=== PATIENT | male | born 1960 | race Caucasian/White ===

== ENCOUNTER 2018-05-20 22:23 | Outpatient (REF) | payer BC, SELFPAY ==
[2018-05-20 23:28] LABS: TSH 2.59 uIU/mL (0.358-3.74)
[2018-05-21 10:32] LABS: Anion Gap 12.1 mmol/L (3-11); BUN 20 mg/dL (7-18); CO2 25.9 mmol/L (21.0-32.0); Chloride 100 mmol/L (98-107); Cholesterol 141 mg/dL (50-200); Estimated GFR 48.41 (mL/min/1.73m2); Glucose 119 mg/dL (70-100); HDL Cholesterol 40 mg/dL (40-60); LDL CHOLESTEROL 66 mg/dL (<100); Potassium 4.4 mmol/L (3.5-5.1); Sodium 138 mmol/L (136-145); Triglyceride 159 mg/dL (30-150)
== END 2018-05-20 22:43 ==
LOC: NCHCN 22:23
PROVIDERS: PCP Nurse Practitioner Family; Visit Provider Family Medicine
DX: E11.9 Type 2 diabetes mellitus without complications (principal); N18.3 Chronic kidney disease, stage 3 (moderate); E03.9 Hypothyroidism, unspecified
CPT/HCPCS: 80048; 80061; 83721; 84443

== ENCOUNTER 2019-01-19 16:27 | Outpatient (REF) | payer BC, SELFPAY ==
[2019-01-19 22:38] LABS: COMMENT (LAB VIEW ONLY) 120.74 mg/dL; Microalb ug/mg Crea 1.2 ug/mg Cr
== END 2019-01-19 16:47 ==
LOC: NCHCN 16:27
PROVIDERS: PCP Nurse Practitioner Family; Visit Provider Family Medicine
DX: E11.9 Type 2 diabetes mellitus without complications (principal)
CPT/HCPCS: 82043; 82570

== ENCOUNTER 2019-07-20 18:20 | Outpatient (REF) | payer BC, SELFPAY ==
[2019-07-20 21:37] LABS: BUN 19 mg/dL (7-18); CREATININE 1.53 mg/dL (0.70-1.30); Calcium 9.9 mg/dL (8.5-10.1); Chloride 101 mmol/L (98-107); Estimated GFR 47.15 (mL/min/1.73m2); Glucose 113 mg/dL (70-100); Potassium 5.2 mmol/L (3.5-5.1); Sodium 141 mmol/L (136-145); TSH 0.86 uIU/mL (0.36-3.74)
== END 2019-07-20 18:40 ==
LOC: NCHCN 18:20
PROVIDERS: PCP Nurse Practitioner Family; Visit Provider Family Medicine
DX: E03.9 Hypothyroidism, unspecified (principal); I10 Essential (primary) hypertension
CPT/HCPCS: 80048; 84443

== ENCOUNTER 2020-07-11 10:30 | Outpatient (REF) | payer OTHER, SELFPAY ==
[2020-07-11 22:40] LABS: ALT 40 U/L (16-63); AST 31 U/L (15-37); Albumin 3.5 g/dL (3.4-5.0); Alkaline Phosphatase 93 U/L (46-116); BUN 16 mg/dL (7-18); Bilirubin, Total 0.3 mg/dL (0.2-1.0); CREATININE 1.31 mg/dL (0.70-1.30); Calculated LDL 30 mg/dL (<100); Chloride 102 mmol/L (98-107); Cholesterol 139 mg/dL (<200); Glucose 108 mg/dL (74-106); HDL Cholesterol 34 mg/dL (40-60); Potassium 3.9 mmol/L (3.5-5.1); Sodium 138 mmol/L (136-145); TSH 1.21 uIU/mL (0.36-3.74); Total Protein 7.1 g/dL (6.4-8.2); Triglyceride 377 mg/dL (<150)
== END 2020-07-11 10:50 ==
LOC: NCHCN 10:30
PROVIDERS: Family Medicine; PCP Nurse Practitioner Family; Visit Provider Family Medicine
DX: Z00.00 Encounter for general adult medical examination without abnormal findings (principal); N18.30 Chronic kidney disease, stage 3 unspecified; E11.22 Type 2 diabetes mellitus with diabetic chronic kidney disease; E03.9 Hypothyroidism, unspecified
CPT/HCPCS: 80053; 80061; 84443

== ENCOUNTER 2021-04-23 10:18 | Outpatient (REF) | payer OTHER, SELFPAY ==
[2021-04-23 14:46] LABS: Hemoglobin A1C 6.6 % (<5.7)
[2021-04-23 14:48] LABS: ALT 27 U/L (16-63); AST 21 U/L (15-37); Albumin 3.7 g/dL (3.4-5.0); Alkaline Phosphatase 95 U/L (46-116); Anion Gap 8.8 mmol/L (3-11); BUN 17 mg/dL (7-18); Bilirubin, Total 0.5 mg/dL (0.2-1.0); CO2 30.2 mmol/L (21.0-32.0); CREATININE 1.4 mg/dL (0.70-1.30); Calcium 9.4 mg/dL (8.5-10.1); Calculated LDL 36 mg/dL (<100); Chloride 99 mmol/L (98-107); Cholesterol 100 mg/dL (<200); Estimated GFR 51.87 (mL/min/1.73m2); Glucose 98 mg/dL (74-106); HDL Cholesterol 38 mg/dL (40-60); Potassium 4.4 mmol/L (3.5-5.1); Sodium 138 mmol/L (136-145); Total Protein 7.4 g/dL (6.4-8.2); Triglyceride 134 mg/dL (<150)
[2021-04-23 15:15] LABS: COMMENT (LAB VIEW ONLY) 136.48 mg/dL; Microalb ug/mg Crea 10.1 ug/mg Cr
== END 2021-04-23 10:19 | disposition home or self-care (01) ==
LOC: NCHCN 10:18
PROVIDERS: PCP Nurse Practitioner Family; Visit Provider Family Medicine
DX: E03.9 Hypothyroidism, unspecified (principal); I10 Essential (primary) hypertension; E11.9 Type 2 diabetes mellitus without complications; E66.9 Obesity, unspecified
CPT/HCPCS: 80053; 80061; 82043; 82570; 83036

== ENCOUNTER 2022-03-12 09:27 | Outpatient (REF) | payer OTHER, SELFPAY ==
[2022-03-12 15:38] LABS: ALT 36 U/L (16-63); AST 25 U/L (15-37); Albumin 3.5 g/dL (3.4-5.0); Alkaline Phosphatase 105 U/L (46-116); Anion Gap 7.4 mmol/L (3-11); BUN 17 mg/dL (7-18); Bilirubin, Total 0.3 mg/dL (0.2-1.0); CO2 30.6 mmol/L (21.0-32.0); CREATININE 1.2 mg/dL (0.70-1.30); Chloride 98 mmol/L (98-107); Glucose 133 mg/dL (74-106); Sodium 136 mmol/L (136-145); TSH 9.23 uIU/mL (0.36-3.74); Total Protein 6.9 g/dL (6.4-8.2)
[2022-03-12 16:01] LABS: Calculated LDL 42 mg/dL (<100); Cholesterol 145 mg/dL (<200); HDL Cholesterol 39 mg/dL (40-60); Triglyceride 324 mg/dL (<150)
[2022-03-12 17:20] LABS: COMMENT (LAB VIEW ONLY) 109.48 mg/dL; Microalb ug/mg Crea 6.9 ug/mg Cr
== END 2022-03-12 09:28 | disposition home or self-care (01) ==
LOC: NCHCN 09:27
PROVIDERS: PCP Nurse Practitioner Family; Visit Provider Family Medicine
DX: E03.9 Hypothyroidism, unspecified (principal); I10 Essential (primary) hypertension; E11.9 Type 2 diabetes mellitus without complications; E66.9 Obesity, unspecified; Z13.220 Encounter for screening for lipoid disorders
CPT/HCPCS: 80053; 80061; 82043; 82570; 84443; 84550

== ENCOUNTER 2022-07-22 14:52 | Outpatient (REF) | payer OTHER, SELFPAY ==
[2022-07-22 15:25] LABS: Hemoglobin A1C 6.6 % (<5.7)
[2022-07-22 15:46] LABS: TSH 8.84 uIU/mL (0.36-3.74)
== END 2022-07-22 14:53 | disposition home or self-care (01) ==
LOC: NCHCN 14:52
PROVIDERS: PCP Nurse Practitioner Family; Visit Provider Family Medicine
DX: E11.9 Type 2 diabetes mellitus without complications (principal); E03.9 Hypothyroidism, unspecified
CPT/HCPCS: 83036; 84443

== ENCOUNTER 2022-11-04 13:06 | Outpatient (REF) | payer OTHER, SELFPAY ==
[2022-11-04 15:21] LABS: TSH 0.86 uIU/mL (0.36-3.74)
== END 2022-11-04 13:07 | disposition home or self-care (01) ==
LOC: NCHCN 13:06
PROVIDERS: PCP Nurse Practitioner Family; Visit Provider Family Medicine
DX: E03.9 Hypothyroidism, unspecified (principal)
CPT/HCPCS: 84443

== ENCOUNTER 2023-06-12 10:52 | Outpatient (REF) | payer OTHER, SELFPAY ==
[2023-06-12 14:20] LABS: COMMENT (LAB VIEW ONLY) 186.36 mg/dL; Microalb ug/mg Crea 16.3 ug/mg Cr
== END 2023-06-12 10:53 | disposition home or self-care (01) ==
LOC: NCHCN 10:52
PROVIDERS: PCP Nurse Practitioner Family; Visit Provider Family Medicine
DX: E11.9 Type 2 diabetes mellitus without complications (principal)
CPT/HCPCS: 82043; 82570

== ENCOUNTER 2023-10-05 16:26 | Outpatient (REF) | payer OTHER, SELFPAY ==
[2023-10-05 15:43] LABS: TSH 1.79 uIU/mL (0.36-3.74)
== END 2023-10-05 16:27 | disposition home or self-care (01) ==
LOC: NCHCN 16:26
PROVIDERS: PCP Nurse Practitioner Family; Visit Provider Family Medicine
DX: E03.9 Hypothyroidism, unspecified (principal)
CPT/HCPCS: 84443

== ENCOUNTER 2024-06-24 13:38 | Outpatient (REF) | payer OTHER, SELFPAY ==
[2024-06-24 15:56] LABS: Anion Gap 6.2 mmol/L (3-11); BUN 15 mg/dL (7-18); CO2 31.8 mmol/L (21.0-32.0); CREATININE 1.2 mg/dL (0.70-1.30); Calcium 9.3 mg/dL (8.5-10.1); Calculated LDL 46 mg/dL (<100); Chloride 105 mmol/L (98-107); Cholesterol 133 mg/dL (<200); Estimated GFR 68.38 (mL/min/1.73m2); Glucose 130 mg/dL (74-106); HDL Cholesterol 38 mg/dL (40-60); Potassium 3.8 mmol/L (3.5-5.1); Sodium 143 mmol/L (136-145); TSH 2.23 uIU/mL (0.36-3.74); Triglyceride 249 mg/dL (<150)
== END 2024-06-24 13:39 | disposition home or self-care (01) ==
LOC: NCHCN 13:38
PROVIDERS: PCP Nurse Practitioner Family; Visit Provider Family Medicine
DX: I10 Essential (primary) hypertension (principal); E03.9 Hypothyroidism, unspecified; Z13.220 Encounter for screening for lipoid disorders
CPT/HCPCS: 80048; 80061; 84443